=== PATIENT | female | born 2000 | race Caucasian/White ===

== ENCOUNTER 2021-11-22 13:34 | Emergency (ER) | payer MEDICAID, SELFPAY ==
[2021-11-22 13:39] VITALS: BP 133/69; PULSE 110; RESP 16; TEMP 37.1; O2SAT 98; BMI 28.1
[2021-11-22 15:41] LABS: Strep A Nucleic Acid Negative (Negative)
[2021-11-22] MEDS: dexAMETHasone 2 MG TABLET 10 MG PO (16:17)
--- NOTE | 2021-11-22 16:18 | ED.EYEPROB ---
HPI - Eye Problem General Chief complaint: Eye Problems Stated complaint: sore throat Time Seen by Provider: 11/22/21 16:08 History of Present Illness HPI Narrative: Patient complains of sore throat and right eye redness and slight discharge for 2 days as well as some runny nose Related Data Previous Rx's Medication Instructions Recorded erythromycin 5 mg/gram (0.5 %) eye 0.5 inch OPHTHALMIC (EYE) TID 5 11/22/21 ointment Days #3.5 g ibuprofen 600 mg tablet 600 mg PO Q6H PRN #20 tab 11/22/21 penicillin V potassium 500 mg 500 mg PO QID 10 Days #40 tab 11/22/21 tablet Allergies Allergy/AdvReac Type Severity Reaction Status Date / Time No Known Allergies Allergy Verified 11/22/21 13:41 Review of Systems Review of Systems: Positive for runny nose, sore throat and right eye redness and discharge Negatives are no fever no chills no dizziness no weakness no headache no eye pain or vision loss, there is pain with swallowing but no difficulty swallowing no stiff neck no sore throat no chest pain no cough no shortness of breath no abdominal pain no nausea vomiting or diarrhea no skin rash Yes all other systems are reviewed and are negative PMFSH Past Medical History Source: nursing notes reviewed Social History Social History Advance Directives: No Advance Directives Information Provided: No Physical Exam Vital Signs: Vital Signs: Last Vital Signs Temp 98.8 F 11/22/21 13:39 Pulse 110 H 11/22/21 13:39 Resp 16 11/22/21 13:39 BP 133/69 11/22/21 13:39 Pulse Ox 98 11/22/21 13:39 BMI result Body Mass Index 28.1 General appearance is no distress Head is normocephalic atraumatic The eyes there was bilateral conjunctival redness with some watery discharge in the right eye pupils equal round reactive light and extraocular motions were intact no photophobia Neck is supple Respiratory no distress Chest clear to auscultation bilateral The pharynx is red with bilateral symmetric swollen tonsils, uvula midline, voice is normal there is no drooling or trismus and mucous membranes more moist Extremities full range of motion x4 Skin no rash Course Course Course Narrative: Patient had refused a COVID test as she was just tested yesterday and 2 days before that, her strep test was negative but she was insistent that she has had strep throat just like this before and wanted to be treated so I agreed and she was prescribed erythromycin ointment for possible bacterial conjunctivitis of the right eye Otherwise well-appearing patient was discharged MDM - Eye Problem Lab Data Labs: Lab Results 11/22/21 Range/Units 15:28 S. pyogenes GrpA GONZALO Negative (Negative) Discharge Plan Discharge Clinical Impression: Pharyngitis, Conjunctivitis Patient Disposition: Home, Self-Care Additional Instructions: We are treating for possibility of strep throat with penicillin, we gave you 1 dose of steroid which is often very helpful with sore throat You may have pinkeye in the right eye or could be from a virus but we wrote you for erythromycin ointment Return any time any worse condition or any concerns Drink plenty of fluids and you could use Tylenol or Motrin if needed Prescriptions: New erythromycin 5 mg/gram (0.5 %) ointment 0.5 inch ophthalmic (eye) TID 5 Days Qty: 3.5 RF: 0 penicillin V potassium 500 mg tablet 500 mg PO QID 10 Days Qty: 40 RF: 0 ibuprofen 600 mg tablet 600 mg PO Q6H PRN (Reason: pain) Qty: 20 RF: 0 Interventions: ED Discharge Assessment Last Done: 11/22/21 16:30 Discharge Date/Time: 11/22/21 16:34
== END 2021-11-22 16:34 | disposition home or self-care (01) ==
PROVIDERS: Emergency Provider Emergency Medicine Emergency Medical Services
DX: J02.9 Acute pharyngitis, unspecified (principal); H10.9 Unspecified conjunctivitis
CPT/HCPCS: 36415; 87651; 99283; J8540

== ENCOUNTER → 2022-02-13 15:58 | Outpatient (BNVA) | payer MEDICAID, SELFPAY | PROVIDERS: Visit Provider Advanced Practice Midwife | DX: Z30.011 Encounter for initial prescription of contraceptive pills (principal) | CPT/HCPCS: Q3014 ==